=== PATIENT | female | born 1950 | race Caucasian/White ===

== ENCOUNTER 2021-12-05 16:21 | Emergency (ER) | payer MEDICARE, OTHER ==
[2021-12-05] MEDS ORDERED: Clindamycin HCl 150 MG Cap PO STA (22:00)
== END 2021-12-05 22:19 | disposition home or self-care (01) ==
LOC: JD.ED 16:21
DX: L03.116 Cellulitis of left lower limb (principal); I87.2 Venous insufficiency (chronic) (peripheral); R60.9 Edema, unspecified; I11.0 Hypertensive heart disease with heart failure; I50.9 Heart failure, unspecified; K21.9 Gastro-esophageal reflux disease without esophagitis; E03.9 Hypothyroidism, unspecified; Z87.891 Personal history of nicotine dependence; Z88.5 Allergy status to narcotic agent; Z79.899 Other long term (current) drug therapy
CPT/HCPCS: 36415; 80053; 85025; 85379; 85610; 93970; 99284; A9270

== ENCOUNTER 2022-06-07 16:08 | Emergency (ER) | payer MEDICARE, OTHER ==
[2022-06-07 19:15] LABS: ESTIMATED GFR 54 mL/min (>60)
[2022-06-07] MEDS ORDERED: Cephalexin 500 MG Cap PO STA (20:11)
== END 2022-06-07 20:28 | disposition home or self-care (01) ==
LOC: JD.ED 16:08
DX: L03.115 Cellulitis of right lower limb (principal); L03.116 Cellulitis of left lower limb; I48.91 Unspecified atrial fibrillation; I11.0 Hypertensive heart disease with heart failure; I50.9 Heart failure, unspecified; Z88.1 Allergy status to other antibiotic agents; Z88.5 Allergy status to narcotic agent; Z20.822 Contact with and (suspected) exposure to COVID-19
CPT/HCPCS: 36415; 71045; 80053; 81001; 82947; 83605; 85025; 85610; 85730; 87040; 99284; A9270; U0002

== ENCOUNTER 2022-08-14 13:39 | Inpatient (IN) | payer MEDICARE, OTHER ==
[2022-08-14] MEDS ORDERED: Sodium Chloride 0.9% 10 ML Syringe FLUSH PRN (14:57)
[2022-08-14] MEDS ORDERED: Sodium Chloride 0.9% 1,000 ML IV ONE ×2 (14:57→16:48)
[2022-08-14] MEDS ORDERED: HYDROmorphone 0.5 MG/0.5 ML Syringe IVPUSH ONE (16:24)
[2022-08-14] MEDS ORDERED: oxyCODONE 5 MG Tab PO ONE (21:00)
[2022-08-14] MEDS ORDERED: Rivaroxaban 10 MG Tab PO ONE (21:00)
[2022-08-14] MEDS ORDERED: VANCOmycin 500 MG/100 ML 500 MG in Premix Bag 1 BAG IV ONE (22:15)
[2022-08-15] MEDS ORDERED: oxyCODONE 5 MG Tab PO ONE (08:55)
[2022-08-15] MEDS ORDERED: Furosemide 40 MG Tab PO ONE (09:00)
[2022-08-15] MEDS ORDERED: Diltiazem 240 MG Cap.ER PO ONE (09:00)
[2022-08-15] MEDS ORDERED: Pantoprazole 40 MG Tab.CR PO ONE (09:00)
[2022-08-15] MEDS ORDERED: Piperacillin/Tazobactam 4.5 GM in Sodium Chloride 0.9% 100 ML IV ONE (13:00)
[2022-08-15] MEDS ORDERED: Formoterol/Mometasone 200-5 MCG 8.8 GM Inhaler IH ONE (17:00)
[2022-08-15] MEDS ORDERED: Rivaroxaban 10 MG Tab PO ONE (21:00)
[2022-08-16] MEDS ORDERED: oxyCODONE 5 MG Tab PO ONE (06:00)
[2022-08-16] MEDS ORDERED: Pantoprazole 40 MG Tab.CR PO ONE (09:00)
[2022-08-16] MEDS ORDERED: Diltiazem 240 MG Cap.ER PO ONE (09:00)
[2022-08-16] MEDS ORDERED: Furosemide 40 MG Tab PO ONE (09:00)
[2022-08-16] MEDS ORDERED: Sodium Chloride 0.9% 1,000 ML IV ONE (11:15)
[2022-08-16] MEDS ORDERED: Piperacillin/Tazobactam 4.5 GM in Sodium Chloride 0.9% 100 ML IV ONE (20:15)
[2022-08-16] MEDS ORDERED: Rivaroxaban 10 MG Tab PO ONE (21:00)
[2022-08-17] MEDS ORDERED: Pantoprazole 40 MG Tab.CR PO ONE (09:00)
[2022-08-17] MEDS ORDERED: Diltiazem 240 MG Cap.ER PO ONE (09:00)
[2022-08-17] MEDS ORDERED: Piperacillin/Tazobactam 4.5 GM in Sodium Chloride 0.9% 100 ML IV ONE (09:00)
[2022-08-17] MEDS ORDERED: Furosemide 40 MG Tab PO ONE (09:00)
[2022-08-17] MEDS ORDERED: Sodium Chloride 0.9% 1,000 ML IV ONE (09:10)
[2022-08-17] MEDS ORDERED: Rivaroxaban 10 MG Tab PO ONE (21:00)
[2022-08-18] MEDS ORDERED: Sodium Chloride 0.9% 40 ML IV ONE (00:02)
[2022-08-18] MEDS ORDERED: Iopamidol 755 Mg/ML 100 ML Bottle IV ONE (00:02)
[2022-08-18] MEDS ORDERED: Piperacillin/Tazobactam 4.5 GM in Sodium Chloride 0.9% 100 ML IV ONE (09:00)
[2022-08-18] MEDS ORDERED: Rivaroxaban 10 MG Tab PO ONE (09:00)
[2022-08-18] MEDS ORDERED: Pantoprazole 40 MG Tab.CR PO ONE (09:00)
[2022-08-18] MEDS ORDERED: Diltiazem 240 MG Cap.ER PO ONE (09:10)
[2022-08-18] MEDS ORDERED: traMADol 50 MG Tab PO ONE (11:20)
[2022-08-18] MEDS ORDERED: Potassium Chloride 20 MEQ Tab.ER PO ONE (12:00)
[2022-08-18] MEDS ORDERED: Albuterol/Ipratropium 3.0-0.5 MG/3 ML Neb Soln NEB PRN (15:13)
[2022-08-19] MEDS ORDERED: HYDROmorphone 0.5 MG/0.5 ML Syringe IV ONE (00:43)
[2022-08-19] MEDS ORDERED: Pantoprazole 40 MG Tab.CR PO ONE (09:00)
[2022-08-19] MEDS ORDERED: Diltiazem 240 MG Cap.ER PO ONE (09:00)
[2022-08-19] MEDS ORDERED: Furosemide 40 MG/4 ML VIAL IV ONE (21:00)
[2022-08-19] MEDS ORDERED: Piperacillin/Tazobactam 4.5 GM in Sodium Chloride 0.9% 100 ML IV ONE (21:00)
[2022-08-19] MEDS ORDERED: Rivaroxaban 10 MG Tab PO ONE (21:00)
[2022-08-20] MEDS ORDERED: Piperacillin/Tazobactam 4.5 GM in Sodium Chloride 0.9% 100 ML IV ONE (05:00)
[2022-08-20] MEDS ORDERED: Pantoprazole 40 MG Tab.CR PO ONE (09:00)
[2022-08-20] MEDS ORDERED: Diltiazem 240 MG Cap.ER PO ONE (09:00)
[2022-08-20] MEDS ORDERED: Nystatin Topical Powder 15 GM Bottle TOP ONE (09:15)
[2022-08-20] MEDS ORDERED: Ondansetron 4 MG Tab.DIS PO ONE (09:15)
[2022-08-20] MEDS ORDERED: Furosemide 40 MG/4 ML VIAL IV ONE (09:21)
[2022-08-20] MEDS ORDERED: Rivaroxaban 10 MG Tab PO ONE (21:00)
[2022-08-21] MEDS ORDERED: Piperacillin/Tazobactam 4.5 GM in Sodium Chloride 0.9% 100 ML IV ONE (05:00)
[2022-08-21] MEDS ORDERED: Diltiazem 240 MG Cap.ER PO ONE (09:00)
[2022-08-21] MEDS ORDERED: Pantoprazole 40 MG Tab.CR PO ONE (09:00)
[2022-08-21] MEDS ORDERED: oxyCODONE 5 MG Tab PO ONE (12:44)
[2022-08-21] MEDS ORDERED: Rivaroxaban 10 MG Tab PO ONE (21:00)
[2022-09-14] MEDS ORDERED: Polyethylene Glycol 3350 Powder 17 GM Packet PO PRN (13:20)
[2022-09-14] MEDS ORDERED: Enoxaparin 30 MG/0.3 ML Syringe SUBCUT SCH (13:30)
[2022-09-14] MEDS ORDERED: Albuterol/Ipratropium 3.0-0.5 MG/3 ML Neb Soln NEB PRN (13:39)
[2022-09-14] MEDS ORDERED: Non-Formulary Medication 1 Each (Ondansetron [Ondansetron Odt] 8 MG Tab.Rapdis) PO PRN (13:39)
[2022-09-14] MEDS ORDERED: Furosemide 100 MG in Sodium Chloride 0.9% 90 ML IV SCH (13:45)
[2022-09-14] MEDS ORDERED: Norepinephrine 4 MG in Dextrose 5% in Water 246 ML IV SCH ×2 (14:00)
[2022-09-14] MEDS ORDERED: Non-Formulary Medication 1 Each (Rivaroxaban [Xarelto] 20 MG Tablet) PO SCH (18:00)
[2022-09-15] MEDS ORDERED: Non-Formulary Medication 1 Each (Omeprazole 20 MG Capsule.Dr) PO SCH (06:00)
== END 2022-08-22 13:01 | DRG 602 ==
LOC: JD.ED 13:39 → JD.ZCENSUS 17:59 → JD.ED 18:15
PROVIDERS: ADMIT Internal Medicine; ATTEND Internal Medicine
PROC: 0W993ZZ Drainage of Right Pleural Cavity, Percutaneous Approach (ICD-10-PCS; 2022-08-19)
PROC: 0W9B3ZZ Drainage of Left Pleural Cavity, Percutaneous Approach (ICD-10-PCS; principal; 2022-08-20)
DX: L03.116 Cellulitis of left lower limb (principal); I21.A1 Myocardial infarction type 2; I50.23 Acute on chronic systolic (congestive) heart failure; I48.21 Permanent atrial fibrillation; J90 Pleural effusion, not elsewhere classified; I13.0 Hypertensive heart and chronic kidney disease with heart failure and stage 1 through stage 4 chronic kidney disease, or unspecified chronic kidney disease; L03.115 Cellulitis of right lower limb; Z66 Do not resuscitate; I48.91 Unspecified atrial fibrillation; I95.9 Hypotension, unspecified; E87.6 Hypokalemia; N18.30 Chronic kidney disease, stage 3 unspecified; I50.9 Heart failure, unspecified; I11.0 Hypertensive heart disease with heart failure; Z88.1 Allergy status to other antibiotic agents; Z88.6 Allergy status to analgesic agent; K21.9 Gastro-esophageal reflux disease without esophagitis; Z90.49 Acquired absence of other specified parts of digestive tract; E03.9 Hypothyroidism, unspecified; Z98.84 Bariatric surgery status; Z87.440 Personal history of urinary (tract) infections; Z87.01 Personal history of pneumonia (recurrent); Z98.51 Tubal ligation status; Z88.8 Allergy status to other drugs, medicaments and biological substances; Z79.01 Long term (current) use of anticoagulants; Z79.899 Other long term (current) drug therapy; Z20.822 Contact with and (suspected) exposure to COVID-19
CPT/HCPCS: 36415; 80048; 80053; 80202; 81003; 83605; 83735; 83880; 84484; 85007; 85025; 85027; 85379; 85610; 85652; 86140; 87015; 87040; 87116; 87206; 87641; 94640; 94761; 96361; 96365; 96375; 99222; 99232; 99238; 99284; 99285-25; A9270-GY; J1170; J1940; J2543; J3370; J7030; J7050; J7620-GY; Q9967; U0002

== ENCOUNTER 2022-09-14 07:54 | Inpatient (IN) | payer MEDICARE, OTHER ==
[2022-09-14] MEDS ORDERED: Aspirin 81 MG Tab.Chew PO ONE (08:17)
[2022-09-14] MEDS ORDERED: Sodium Chloride 0.9% 500 ML IV ONE (08:31)
[2022-09-14] MEDS ORDERED: Iopamidol 755 Mg/ML 100 ML Bottle IVPUSH ONE ×2 (08:37→11:03)
[2022-09-14] MEDS ORDERED: Magnesium Sulfate (4.06 MEQ/ML) 5 GM/10 ML SDV IV ONE (08:37)
[2022-09-14] MEDS ORDERED: Norepinephrine 4 MG/4 ML SDV ONE ×2 (08:40→19:50)
[2022-09-14] MEDS ORDERED: Sodium Chloride 0.9% 250 ML ONE (08:40)
[2022-09-14] MEDS: Sodium Chloride 0.9% 10 ML Syringe FLUSH PRN ×2 (08:43→11:20)
[2022-09-14] MEDS ORDERED: Sodium Chloride 0.9% 100 ML IV SCH (08:45)
[2022-09-14] MEDS ORDERED: Norepinephrine 4 MG in Dextrose 5% in Water 246 ML IV SCH ×2 (08:45)
[2022-09-14] MEDS ORDERED: Magnesium Sulfate/Water 2 GM in Premix Bag 1 BAG IV ONE (08:45)
[2022-09-14 09:06] LABS: CORONAVIRUS COVID-19 NAA NEGATIVE (NEGATIVE)
[2022-09-14] MEDS ORDERED: Sodium Chloride 0.9% 10 ML Syringe FLUSH PRN (11:03)
[2022-09-14] MEDS ORDERED: Sodium Chloride 0.9% 45 ML IV SCH (11:15)
[2022-09-14] MEDS ORDERED: Polyethylene Glycol 3350 Powder 17 GM Packet PO PRN (14:14)
[2022-09-14] MEDS ORDERED: Albuterol/Ipratropium 3.0-0.5 MG/3 ML Neb Soln NEB PRN (14:56)
[2022-09-14] MEDS ORDERED: Furosemide 100 MG in Sodium Chloride 0.9% 90 ML IV SCH (15:00)
[2022-09-14] MEDS: Albumin 25% 12.5 GM in Premix Bag 1 BAG IV SCH ×2 (15:11→16:02)
[2022-09-14] MEDS ORDERED: Sodium Chloride 0.9% 250 ML IV SCH ×2 (16:00→16:30)
[2022-09-14] MEDS: Levothyroxine 50 MCG Tab PO SCH ×2 (17:35→18:37)
[2022-09-14] MEDS ORDERED: Rivaroxaban 10 MG Tab PO SCH (18:00)
[2022-09-14] MEDS ORDERED: Non-Formulary Medication 1 Each (Rivaroxaban [Xarelto] 20 MG Tablet) PO SCH (18:00)
[2022-09-14] MEDS ORDERED: Rivaroxaban 15 MG Tab PO SCH (18:00)
[2022-09-14] MEDS ORDERED: Metoprolol Tartrate 5 MG/5 ML SDV IVPUSH ONE (18:35)
[2022-09-14] MEDS: Norepinephrine 4 MG in Dextrose 5% in Water 246 ML IV SCH ×2 (19:51)
[2022-09-14] MEDS: Ondansetron 4 MG Tab.DIS PO PRN (20:56)
[2022-09-14] MEDS: Albuterol/Ipratropium 3.0-0.5 MG/3 ML Neb Soln INH PRN (21:19)
[2022-09-15] MEDS: Norepinephrine 4 MG in Dextrose 5% in Water 246 ML IV SCH ×4 (03:35→11:05)
[2022-09-15] MEDS ORDERED: Non-Formulary Medication 1 Each (Omeprazole 20 MG Capsule.Dr) PO SCH (06:00)
[2022-09-15] MEDS: Pantoprazole 40 MG Tab.CR PO SCH (06:08)
[2022-09-15] MEDS: Levothyroxine 50 MCG Tab PO SCH (06:08)
[2022-09-15] MEDS ORDERED: Digoxin 500 MCG/2 ML Amp IV SCH (10:15)
[2022-09-15] MEDS ORDERED: Digoxin 500 MCG/2 ML Amp IVPUSH SCH ×2 (12:30→23:55)
[2022-09-15] MEDS ORDERED: FLU Vacc QS2022(65UP)/MF59C/PF 60 MCG/0.5 ML Syringe IM ONE (15:00)
[2022-09-15] MEDS: Morphine 2 MG/ML SYRINGE IVPUSH PRN (23:51)
[2022-09-15] MEDS ORDERED: Digoxin 500 MCG/2 ML Amp IVPUSH ONE (23:55)
[2022-09-16] MEDS: Albuterol/Ipratropium 3.0-0.5 MG/3 ML Neb Soln INH PRN ×2 (00:22→15:08)
[2022-09-16] MEDS: Pantoprazole 40 MG Tab.CR PO SCH (06:43)
[2022-09-16] MEDS: Levothyroxine 50 MCG Tab PO SCH (06:43)
[2022-09-16] MEDS ORDERED: Furosemide 40 MG/4 ML VIAL IVPUSH ONE (09:59)
[2022-09-17] MEDS: Morphine 2 MG/ML SYRINGE IVPUSH PRN (01:05)
[2022-09-17] MEDS: Pantoprazole 40 MG Tab.CR PO SCH (05:51)
[2022-09-17] MEDS: Levothyroxine 50 MCG Tab PO SCH (05:51)
[2022-09-17] MEDS: Albuterol/Ipratropium 3.0-0.5 MG/3 ML Neb Soln INH PRN ×3 (06:06→21:20)
[2022-09-17] MEDS ORDERED: Digoxin 125 MCG Tab PO ONE (11:46)
[2022-09-17] MEDS ORDERED: Furosemide 40 MG/4 ML VIAL IVPUSH ONE (11:50)
[2022-09-17] MEDS: Metoprolol Succinate 25 MG Tab.ER PO SCH (12:10)
[2022-09-18] MEDS: Morphine 2 MG/ML SYRINGE IVPUSH PRN ×2 (01:32→20:32)
[2022-09-18] MEDS: Pantoprazole 40 MG Tab.CR PO SCH (05:34)
[2022-09-18] MEDS: Levothyroxine 50 MCG Tab PO SCH (05:34)
[2022-09-18] MEDS: Albuterol/Ipratropium 3.0-0.5 MG/3 ML Neb Soln INH PRN ×2 (06:43→20:44)
[2022-09-18] MEDS: Metoprolol Succinate 25 MG Tab.ER PO SCH (08:14)
[2022-09-18] MEDS: Aspirin 81 MG Tab.Chew PO SCH (08:15)
[2022-09-18] MEDS: Furosemide 40 MG Tab PO SCH (08:15)
[2022-09-18] MEDS ORDERED: Rivaroxaban 15 MG Tab PO SCH (17:00)
[2022-09-19] MEDS: Morphine 2 MG/ML SYRINGE IVPUSH PRN ×2 (00:59→02:50)
[2022-09-19] MEDS: Albuterol/Ipratropium 3.0-0.5 MG/3 ML Neb Soln INH PRN (06:10)
[2022-09-19] MEDS ORDERED: Digoxin 125 MCG Tab PO SCH (09:00)
[2022-09-19] MEDS: Ondansetron 4 MG Tab.DIS PO PRN (09:55)
[2022-09-19] MEDS: Aspirin 81 MG Tab.Chew PO SCH (09:55)
[2022-09-19] MEDS: Metoprolol Succinate 25 MG Tab.ER PO SCH (09:56)
[2022-09-19] MEDS: Furosemide 40 MG Tab PO SCH (09:58)
[2022-09-19] MEDS: Pantoprazole 40 MG Tab.CR PO SCH (10:02)
== END 2022-09-19 13:30 | DRG 291 ==
LOC: JD.ED 07:54 → JD.ICU 13:32 → JD.MS 09-16 20:08
PROVIDERS: ADMIT Pediatrics; ATTEND Pediatrics
PROC: 3E033XZ Introduction of Vasopressor into Peripheral Vein, Percutaneous Approach (ICD-10-PCS; principal; 2022-09-14)
DX: I13.0 Hypertensive heart and chronic kidney disease with heart failure and stage 1 through stage 4 chronic kidney disease, or unspecified chronic kidney disease (principal); I26.99 Other pulmonary embolism without acute cor pulmonale; I50.23 Acute on chronic systolic (congestive) heart failure; R57.0 Cardiogenic shock; J90 Pleural effusion, not elsewhere classified; I42.0 Dilated cardiomyopathy; Z20.822 Contact with and (suspected) exposure to COVID-19; I08.0 Rheumatic disorders of both mitral and aortic valves; Z51.5 Encounter for palliative care; J44.9 Chronic obstructive pulmonary disease, unspecified; N18.2 Chronic kidney disease, stage 2 (mild); E03.9 Hypothyroidism, unspecified; I87.2 Venous insufficiency (chronic) (peripheral); I50.84 End stage heart failure; I95.9 Hypotension, unspecified; E03.8 Other specified hypothyroidism; E06.3 Autoimmune thyroiditis; K21.9 Gastro-esophageal reflux disease without esophagitis; M54.9 Dorsalgia, unspecified; G89.29 Other chronic pain; I48.91 Unspecified atrial fibrillation; Z88.8 Allergy status to other drugs, medicaments and biological substances; Z79.899 Other long term (current) drug therapy; Z87.891 Personal history of nicotine dependence; Z90.49 Acquired absence of other specified parts of digestive tract; Z98.84 Bariatric surgery status
CPT/HCPCS: 0240U; 36415; 71045; 71045-26; 71275; 71275-26; 80048; 80053; 80162; 81003; 83690; 83735; 83880; 84443; 84484; 85025; 85610; 86140; 93005; 94640; 94761; A9270-GY; J1160; J1940; J2270; J3475; J3490; J7030; J7050; J7060; J7620-GY; P9047; Q9967